=== PATIENT | female | born 1990 | race Caucasian/White ===

== ENCOUNTER 2016-09-21 11:46 | Emergency (ER) | payer OTHER ==
[2016-09-21 11:59] VITALS: BP 118/80
[2016-09-21] MEDS ORDERED: Ketorolac 60 MG/2 ML SDV IM ONE (12:53)
[2016-09-21] MEDS ORDERED: Lidocaine 1% 50 ML MDV INJECT ONE (12:53)
[2016-09-21] MEDS ORDERED: HYDROmorphone 0.5 MG/0.5 ML Syringe IM ONE (12:53)
--- NOTE | 2016-09-21 12:54 | EDM.PDOC ---
ED HPI GENERAL MEDICAL PROBLEM - General Chief Complaint: Upper Extremity Injury/Pain Stated Complaint: INJURED LT RING FINGER Time Seen by Provider: 09/21/16 12:07 Source of Information: Reports: Patient History Limitations: Reports: No Limitations - History of Present Illness INITIAL COMMENTS - FREE TEXT/NARRATIVE: Patient is a 26 year old female who presents to the E.D. complaining of pain to the left ring finger with deformity noted to the distal phalanx. Patient was hiking in [place] when she slipped causing her to fall. Patient slid down the dirt slope injuring the affected finger. Pain is localized to the DIP. Denies any pain to the remaining fingers, hand, wrist, forearm, elbow, or shoulder. No open wounds present. Has not utilized any medications for pain relief. Left Hand Pain Score (Numeric/FACES): 4 - Related Data Allergies Allergy/AdvReac Type Severity Reaction Status Date / Time No Known Allergies Allergy Verified 09/21/16 11:58 Home Meds: Home Meds Citalopram [Celexa] 20 mg PO DAILY 09/21/16 [History] Gabapentin [Neurontin] 300 mg PO DAILY 09/21/16 [History] buPROPion [Wellbutrin] 300 mg PO DAILY 09/21/16 [History] Review of Systems - Review of Systems Review Of Systems: ROS reveals no pertinent complaints other than HPI. ED EXAM, GENERAL - Physical Exam Exam: See Below Exam Limited By: No Limitations General Appearance: Alert, WD/WN, Mild Distress Ears: Hearing Grossly Normal Nose: Normal Inspection Throat/Mouth: Normal Voice, No Airway Compromise Head: Atraumatic, Normocephalic Neck: Normal Inspection, Supple, Non-Tender, Full Range of Motion Respiratory/Chest: No Respiratory Distress, Lungs Clear, Normal Breath Sounds, No Accessory Muscle Use, Chest Non-Tender Cardiovascular: Normal Peripheral Pulses, Regular Rate, Rhythm Peripheral Pulses: 2+: Radial (L) Extremities: Other (left hand: angulation of the Distal Phalanx 4th finger left hand.Mild pain noted to the PIP and MCP. Increased pain on palpation. Pain to the left anatomical snuff box with palpation. Pain with flexion and extension. No pain noted to the remaining fingers, forearm, elbow, upper arm, shoulder. ) Neurological: Alert, Oriented, CN II-XII Intact, Normal Cognition Psychiatric: Normal Affect, Normal Mood Skin Exam: Warm, Dry, Intact, Normal Color, No Rash ED TRAUMA EXTREMITY PROCEDURES - Joint Reduction Site: Finger (L) (Fourth digit DIP) Sedation: Digital Block Local Anesthesia - Lidocaine (Xylocaine): 1% Plain Local Anesthetic Volume: 5cc Pre-Procedure NV Status: Normal Post-Procedure NV Status: Abnormal (Anesthetized) Technique: Traction/Counter Traction Number of Attempts: 1 Post-Reduction Imaging: Completely Reduced Joint Reduction Complications: Yes - Splinting Left Upper Extremity Splint Site: Left wrist Pre-Procedure NV Status: Normal Post-Procedure NV Status: Normal Splint Material: Farhan Tape Splint Design: Thumb Spica Applied & Form Fitted By: Provider Provider Post-Splint Application NV Check: NV Status Normal, Good Position Complications: No Course - Vital Signs Last Recorded V/S: Last Vital Signs Temp 97.8 F 09/21/16 11:55 Pulse 89 09/21/16 11:55 Resp 18 09/21/16 11:55 BP 118/80 09/21/16 11:55 Pulse Ox 98 09/21/16 11:55 - Orders/Labs/Meds Orders: Active Orders 24 hr Category Date Time Status Fingers Fourth Digit Lt F3 [CR] Stat Exams 09/21/16 14:01 Taken Hand 2V Lt [CR] Stat Exams 09/21/16 12:52 Taken Meds: Medications Discontinued Medications Generic Name Dose Route Start Last Admin Trade Name Freq PRN Reason Stop Dose Admin Hydromorphone HCl 0.5 mg 09/21/16 12:53 09/21/16 13:16 Dilaudid IM 09/21/16 12:54 0.5 mg ONETIME ONE Administration Ketorolac Tromethamine 60 mg 09/21/16 12:53 09/21/16 13:09 Toradol IM 09/21/16 12:54 60 mg ONETIME ONE Administration Lidocaine HCl 50 ml 09/21/16 12:53 09/21/16 13:17 Xylocaine 1% INJECT 09/21/16 12:54 50 ml ONETIME ONE Administration - Re-Assessments/Exams Free Text/Narrative Re-Assessment/Exam: Ordered x-ray of the left ring, left hand, left wrist. Ordered Dilaudid 0.5 mg IM, Toradol 60 mg IM, and 1% lidocaine. 09/21/16 14:02 09/21/16 14:03 Digitally blocked left fourth digit. Successful reduction of the DIP. Will reassess after postreduction films. Post reduction film did reveal fracture to the DIP. Will splint the affected finger with a aluminum splint. Thumb spica splint will be placed. Discharge instructions as documented. 09/21/16 15:23 Departure - Departure Time of Disposition: 14:59 Disposition: Home, Self-Care 01 Condition: Good Clinical Impression: Wrist pain, left Finger fracture, left Qualifiers: Encounter type: initial encounter Finger: ring finger Fracture type: closed Phalanx: distal Fracture alignment: displaced Qualified Code(s): S62.635A - Displaced fracture of distal phalanx of left ring finger, initial encounter for closed fracture Left wrist sprain Qualifiers: Encounter type: initial encounter Qualified Code(s): S63.502A - Unspecified sprain of left wrist, initial encounter - Discharge Information Instructions: Cast or Splint Care, [id number], Finger Fracture, [id number] Referrals: PCP,None [Primary Care Provider] - Forms: ED Department Discharge Additional Instructions: Leave splint in place until evaluated by orthopedic surgeon of your choice and 10-14 days. Elevate when able to reduce swelling and pain. Apply ice to the affected area 4-6 times daily, 20 minutes in duration, do not place ice directly on the skin. Take ibuprofen and Tylenol in alternating fashion for pain. Refrain from any activities that require utilization of left hand. Return to the ED as needed for any new or worsening symptoms. No driving today since receiving a sedative medication while in the E.D. - My Orders Last 24 Hours: My Active Orders 09/21/16 12:52 Hand 2V Lt [CR] Stat 09/21/16 14:01 Fingers Fourth Digit Lt F3 [CR] Stat - Assessment/Plan Last 24 Hours: My Active Orders 09/21/16 12:52 Hand 2V Lt [CR] Stat 09/21/16 14:01 Fingers Fourth Digit Lt F3 [CR] Stat
--- NOTE | 2016-09-21 16:17 | CR ---
Left wrist: Multiple views of the left wrist were obtained. Positioning somewhat less than optimal. Joint spaces are preserved. No discrete fracture, dislocation or other bony abnormality is seen. Impression: 1. No discrete abnormality is identified on left wrist study. Diagnostic code #1
--- NOTE | 2016-09-21 16:34 | CR ---
Left hand: Multiple views of the left hand were obtained. Fingers are held in flexion which diminishes details. The AP view shows what appears to be dislocation within the DIP joint of the fourth digit. Please correlate if this matches clinically. No discrete fracture or other abnormality is seen. Impression: 1. Dislocation suggested within the DIP joint of the fourth digit. Please correlate. 2. No additional abnormality is definitely appreciated. Diagnostic code #3
--- NOTE | 2016-09-23 06:45 | CR ---
Left hand: Three views of the left hand were obtained. Previous dislocation within the DIP joint of the fourth digit has been reduced. Fracture identified within the base of the distal phalanx with mild displacement. Soft tissue swelling is seen. No additional abnormality is seen within the left hand. Impression: 1. Previous questioned dislocation has been reduced. 2. Slightly displaced fracture is noted within the base of the distal phalanx of the fourth digit. Diagnostic code #3
== END 2016-09-21 15:30 | disposition home or self-care (01) ==
LOC: JD.ED 11:46
DX: S62.635A Displaced fracture of distal phalanx of left ring finger, initial encounter for closed fracture (principal); S63.502A Unspecified sprain of left wrist, initial encounter; Z79.899 Other long term (current) drug therapy; W18.30XA Fall on same level, unspecified, initial encounter; Y93.01 Activity, walking, marching and hiking
CPT/HCPCS: 26755; 73110; 73140; 99284; J1170; J1885; 26770; 29125; 64450; 73120-LT; 99283-25